=== PATIENT | male | born 1995 ===

== ENCOUNTER 2018-04-18 09:34 | Emergency (ER) | payer OTHER ==
[~2018-04-18] VITALS: Ht 172.7 cm; Wt 81.6 kg
[2018-04-18] MEDS ORDERED: IBUPROFEN800 MG PO (13:45)
== END 2018-04-18 17:51 | disposition home or self-care (01) ==
LOC: ER 09:34
DX: S40.012A Contusion of left shoulder, initial encounter (principal); W18.39XA Other fall on same level, initial encounter; Y93.89 Activity, other specified; Y92.832 Beach as the place of occurrence of the external cause; Y99.8 Other external cause status